=== PATIENT | female | born 1995 | race Caucasian/White ===

== ENCOUNTER → 2017-06-19 13:27 | Emergency (ER) | payer SELFPAY ==
[2017-06-19 14:04] VITALS: BP 111/72
--- NOTE | 2017-06-19 15:58 | UC ---
Omar Mauricio SooYoung, scribed for Edgard Sanabria MD on 06/19/17 at 1436 . General HPI - HPI Summary HPI Summary: A 21 y/o F presents to [facility] for a pre-employment physical. 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 Denies back, hip problems, dysuria, vaginal discharge, open wounds, sore throat, depression, SI, CT, hallucinations. Denies pert PMHx. Non- smoker. Occasional ETOH. She says she's gotten her TB test recently, and does not need that completed today. - History of Current Complaint Chief Complaint: UCGeneralIllness Stated Complaint: PRE-EMPLY PHYSICAL Hx Obtained From: Patient Hx Last Menstrual Period: 1 WEEK AGO Current Severity: None Associated Signs & Symptoms: Negative: Other - see HPI - Allergy/Home Medications Allergies/Adverse Reactions: Allergies Allergy/AdvReac Type Severity Reaction Status Date / Time No Known Allergies Allergy Verified 06/19/17 13:59 Home Medications: Home Medications NK [No Home Medications Reported] 06/19/17 [History Confirmed 06/19/17] PMH/Surg Hx/FS Hx/Imm Hx Previously Healthy: Yes Cardiovascular History: Other Other Cardiovascular History: neg CHF, HTN Respiratory History: Other Other Respiratory History: neg: asthma - Surgical History Surgical History: Yes Surgery Procedure, Year, and Place: tonsilectomy - Family History Known Family History: Negative: Cardiac Disease, Hypertension, Diabetes - Social History Occupation: Employed Part-time, Student Lives: Alone Alcohol Use: Weekly Alcohol Amount: 4-5 drinks Substance Use Type: None Smoking Status (MU): Never Smoked Tobacco Have You Smoked in the Last Year: No Review of Systems Constitutional: Negative Skin: Negative Eyes: Negative ENT: Negative Respiratory: Negative Cardiovascular: Negative Gastrointestinal: Negative Genitourinary: Negative Motor: Negative Neurovascular: Negative Musculoskeletal: Negative Neurological: Negative Psychological: Negative All Other Systems Reviewed And Are Negative: Yes Physical Exam Triage Information Reviewed: Yes Vital Signs: Initial Vital Signs Temp 98.9 F 06/19/17 14:00 Pulse 64 06/19/17 14:00 Resp 16 06/19/17 14:00 BP 111/72 06/19/17 14:00 Pulse Ox 100 06/19/17 14:00 Vital Signs Reviewed: Yes - Additional Comments The patient is well-nourished in no acute distress and in no acute pain. The skin is warm and dry and skin color reflects adequate perfusion. HEENT: The head is normocephalic and atraumatic. Scalp is clear of lice. The pupils are equal and reactive. The conjunctivae are clear and without drainage. Nares are patent and without drainage. Mouth reveals moist mucous membranes and the throat is without erythema and exudate. Tongue is midline. The external ears are intact. The ear canals are patent and without drainage. The tympanic membranes are intact. Neck is supple with full range of motion and non-tender. There are no carotid bruits. There is no neck vein distension. Respiratory: Chest is non-tender. Lungs are clear to auscultation and breath sounds are symmetrical and equal. Cardiovascular: Heart is regular rate and rhythm. There is no murmur or rub auscultated. There is no peripheral edema and pulses are symmetrical and equal. Abdomen: The abdomen is soft and non-tender. There is no organomegaly palpated. Musculoskeletal: There is no back pain noted. No scoliosis noted. Extremities are non-tender with full range of motion. There is good capillary refill. There is no peripheral edema or calf tenderness elicited. Neg Mj. Neg straight leg raising. Symmetrical motor strength. Neurological: Patient is alert and oriented to person, place and time. The patient has symmetrical motor strength in all four extremities. Cranial nerves are grossly intact. Deep tendon reflexes are symmetrical and equal in all four extremities. Psychiatric: The patient has an appropriate affect and does not exhibit any anxiety or depression. Course/Dx - Course Course Of Treatment: Normal BP reading and no follow-up instructions required. Medications reviewed this visit. - Differential Dx - Multi-Symptom Provider Diagnoses: well exam, employment physical examination Discharge - Discharge Plan Condition: Stable Disposition: HOME Patient Education Materials: Normal Exam (ED) Referrals: No Primary Care Phys,NOPCP [Primary Care Provider] - [facility] PHYSICIAN REFERRAL [Outside] The documentation as recorded by the Omar sharma SooYoung accurately reflects the service I personally performed and the decisions made by me, Edgard Sanabria MD.
== END | disposition home or self-care (01) ==
LOC: OHEAST 13:27 → UCEAST 13:27
DX: Z02.1 Encounter for pre-employment examination (principal)